=== PATIENT | female | born 1985 | race Caucasian/White ===

== ENCOUNTER 2017-03-07 06:04 | Day surgery (SDC) | payer OTHER ==
[2017-02-27 16:15] VITALS: BMI 40.0
[2017-03-07] MEDS ORDERED: ROPIVACAINE HCL 0.5% 30ML VIAL ONE (07:00)
[2017-03-07] MEDS ORDERED: MIDAZOLAM HCL 2 MG/2 ML SINGLE DOSE VIAL ONE ×2 (07:00→07:14)
[2017-03-07] MEDS ORDERED: DEXAMETHASONE SOD PHOSPHATE/PF 10 MG/ML SDV ONE (07:00)
[2017-03-07] MEDS ORDERED: BUPIVACAINE HCL/PF 0.5% (5MG/ML) 10 ML VIAL ONE (07:13)
[2017-03-07] MEDS ORDERED: SUCCINYLCHOLINE CHLORIDE 200 MG/10 ML VIAL ONE (07:14)
[2017-03-07] MEDS ORDERED: PROPOFOL 20 ML ONE ×2 (07:14→08:01)
[2017-03-07] MEDS ORDERED: VANCOMYCIN 1,000 MG VIAL (RESTRICTED TO ID ONLY) ONE (07:15)
[2017-03-07] MEDS ORDERED: ceFAZolin SODIUM 1 GM VIAL ONE ×2 (07:15→08:03)
[2017-03-07] MEDS ORDERED: BUPIVACAINE HCL/EPINEPHRINE/PF 30 ML VIAL IJ ONE (07:15)
[2017-03-07] MEDS ORDERED: TRANEXAMIC ACID 1000 MG/10 ML VIAL ONE ×2 (07:15→07:58)
--- NOTE | 2017-03-07 07:24 | HP ---
Admitting History and Physical - Admission History of Present Illness: The patient is a 31 yo female who presents for Left ACL repair today. She injured herslef in October of this year after having a fall. Currently she had no pain but experiences instability. History Source: Patient Limitations to Obtaining History: No Limitations - Past Medical History Cardiovascular: No: Deep Vein Thrombosis Pulmonary: No: Asthma Gastrointestinal: No: Gastritis, GERD Renal/: No: Hematuria, Renal Calculi, UTI ...LMP: 02/20/17 ...: No Heme/Onc: No: Bleeding Disorder - Past Surgical History Additional Past Surgical History: Right ACL repair from a skiing accident in 2006 - Smoking History Smoking history: Never smoked Have you smoked in the past 12 months: No - Alcohol/Substance Use Hx Alcohol Use: Yes (rare) Home Medications - Allergies Allergies/Adverse Reactions: Allergies Allergy/AdvReac Type Severity Reaction Status Date / Time No Known Allergies Allergy Verified 02/27/17 16:36 - Home Medications Home Medications: Ambulatory Orders NK [No Known Home Medication] 02/27/17 Review of Systems - Review of Systems Constitutional: reports: Chills. denies: Fever Neck: denies: Decreased ROM, Pain on Movement Cardiovascular: denies: Chest Pain, Palpitations Respiratory: reports: Snoring. denies: Cough, SOB Gastrointestinal: denies: Abdominal Pain, Nausea Genitourinary: denies: Burning, Dysuria Musculoskeletal: denies: Back Pain, Decreased ROM Neurological: denies: Dizziness, Headache Hematology/Lymphatic: denies: Easily Bruised, Excessive Bleeding Physical Examination Vital Signs: Vital Signs Temperature 97.8 F 03/07/17 06:38 Pulse Rate 75 03/07/17 06:38 Respiratory Rate 18 03/07/17 06:38 Blood Pressure 133/87 03/07/17 06:38 O2 Sat by Pulse Oximetry (%) 98 03/07/17 06:38 Constitutional: Yes: Well Nourished, Calm Eyes: Yes: WNL, Conjunctiva Clear. No: Sclera Icterus HENT: Yes: WNL, Atraumatic, Normocephalic Neck: Yes: WNL, Supple, Trachea Midline Cardiovascular: Yes: WNL, Regular Rate and Rhythm Respiratory: Yes: WNL, Regular, CTA Bilaterally Gastrointestinal: Yes: WNL, Normal Bowel Sounds, Soft Extremities: Yes: Other (positive Lachmans on the left, Right knee with healed scar on knee). No: Calf Tenderness, Delayed Capillary Refill Edema: No Peripheral Pulses WNL: Yes Peripheral Pulses: Left Doralis Pedis: 2+, Right Dorsalis Pedis: 2+ Neurological: Yes: WNL, Alert, Oriented ...Motor Strength: LUE, LLE, RUE, RLE Psychiatric: Yes: Alert, Oriented Labs: Laboratory Tests 03/07/17 06:14 Urine HCG, Qual Negative Problem List - Problems (1) Anterior cruciate ligament tear Assessment/Plan: Plan for surgery today/ Local block to be given by anesthesia The patient remains npo DVT ppx with SCD to right leg/ambulate IV avx at time of surgical incision Code(s): S83.519A - SPRAIN OF ANTERIOR CRUCIATE LIGAMENT OF UNSP KNEE, INIT Qualifiers: Laterality: left
[2017-03-07] MEDS ORDERED: BUPIVACAINE 0.25% /EPI 1:200,000 10 ML VIAL INF ONE ×2 (07:45)
[2017-03-07] MEDS ORDERED: KETAMINE HCL 200 MG/20 ML VIAL ONE (08:06)
--- NOTE | 2017-03-07 09:54 | OP ---
Operative Note - Note: Operative Date: 03/07/17 Pre-Operative Diagnosis: LEft knee ACL tears, medial condyle cartilage defect Operation: Left knee ACLR and medial condyle microfracture Post-Operative Diagnosis: Same as Pre-op Surgeon: Tyrel Yepez Lead Caster: Rita Paredes Anesthesiologist/PHARMACY INFORMATICS SPECIALIST: Loi Sanchez Anesthesia: General Operative Report Dictated: Yes
--- NOTE | 2017-03-07 09:54 | DS ---
Physical Examination Vital Signs: Vital Signs Temperature 97.8 F 03/07/17 06:38 Pulse Rate 75 03/07/17 06:38 Respiratory Rate 18 03/07/17 06:38 Blood Pressure 133/87 03/07/17 06:38 O2 Sat by Pulse Oximetry (%) 98 03/07/17 06:38 Discharge Summary Reason For Visit: ANTERIOR CRUCIATE LIGAMENT TEAR, LEFT KNEE Condition: Good - Instructions Diet, Activity, Other Instructions: Post Operative Instructions: ACL Reconstruction Dr. Tyrel Yepez 1. Pain following an ACL reconstruction is variable and can be significant. Some patients will have more pain than others. You have been provided with a prescription for medication that contains a narcotic. You are not allowed to drive while on this medication. Feel free to take medications such as Ibuprofen or Naprosyn in addition to the pain medicine if you do not have any problems with the NSAID class of medications. 2. You should not remove the bandages for 48 hours unless directed otherwise. You may shower at that point. You are not allowed to bathe or go swimming. Put band-aids on the sutures after your shower and do not put any creams or lotions over the incisions. 3. You are allowed to put all your weight on the leg and bend your knee, however , you should use crutches for assistance unless directed otherwise. 4. Getting the knee straight is your most important goal during the first 72 hours following an ACL reconstruction. Try not to lie down with a pillow under your knee. Instead the pillow should be under your ankle, thus allowing you to push your knee straight down into the bed. This is a very important milestone to achieve before your first post-surgery visit with me. 5. Swelling around the knee is normal following an ACL reconstruction. 6. The area around the knee and along the front of your thomas will also become swollen and black and blue. 7. Apply ice to the knee for 15 min every hour or so. You may continue this for as many days as you like. 8. Please call the office to schedule a visit to have your sutures removed. 9. If for any reason you believe you may have an infection or are concerned, please feel free to call me. I can be reached through our office number 24 hours a day. 10. Please call our office with any questions; we will review the surgical findings during your post operative visit. Disposition: HOME - Home Medications Comprehensive Discharge Medication List: Ambulatory Orders NK [No Known Home Medication] 02/27/17
[2017-03-07] MEDS ORDERED: ONDANSETRON 4 MG/2 ML VIAL IVPUSH ONE (10:05)
[2017-03-07] MEDS ORDERED: SCOPOLAMINE HYDROBROMIDE 1 PATCH PATCH.TD72 ONE (10:09)
[2017-03-07] MEDS ORDERED: ONDANSETRON 4 MG/2 ML VIAL ONE (10:10)
[2017-03-07] MEDS ORDERED: PROMETHAZINE HCL 25 MG/1 ML VIAL ONE (10:47)
[2017-03-07] MEDS ORDERED: PROMETHAZINE HCL 25 MG/1 ML VIAL IVPUSH ONE (10:50)
[2017-03-07] MEDS ORDERED: PROMETHAZINE HCL 25 MG/1 ML VIAL IVPUSH PRN (11:52)
[2017-03-07] MEDS ORDERED: oxyCODONE HCL 5 MG TABLET PO PRN ×2 (11:52)
[2017-03-07] MEDS ORDERED: ONDANSETRON 4 MG/2 ML VIAL IVPUSH PRN (11:52)
[2017-03-07] MEDS ORDERED: LACTATED RINGERS SOLUTION 1,000 ML IV SCH (12:00)
[2017-03-07 12:50] VITALS: TEMP 98.5
[2017-03-07 13:31] VITALS: BP 114/70; PULSE 74
--- NOTE | 2017-03-07 13:37 | SURG ---
Surgery Manager Biostatistics Note Manager Biostatistics: Rita Paredes PA-C Date of Service: 03/07/17 Diagnosis: LEft knee ACL tears, medial condyle cartilage defect Procedure: Left knee ACLR and medial condyle microfracture I was present for the entirety of the operative procedure. For further detail, please refer to operative report. Visit type - Case Type Case Type: Scheduled Admission - Emergency Emergency Visit: No - New patient This patient is new to me today: Yes Date on this admission: 03/07/17 - Critical Care Critical Care patient: No
--- NOTE | 2017-03-10 12:36 | PATH ---
Surgical Pathology Report Patient Name: ALONDRA GROSS [facility]. Rec. #: [id number] /Age/Gender: 1985 (Age: 31) / F Account: [id number] Location: [facility] AMBULATORY Taken: 03/07/2017 Received: 03/07/2017 Reported: 03/10/2017 Physicians: Tyrel Yepez M.D. Specimen(s) Received LEFT KNEE SHAVINGS Clinical History Left knee ACL tear Final Diagnosis KNEE, LEFT, ARTHROSCOPIC SHAVING: FIBROCARTILAGE WITH MYXOID DEGENERATIVE CHANGES, ALONG WITH PORTIONS OF BONE, SYNOVIUM AND HYALINE CARTILAGE. Electronically Signed Doug Olmos M.D. Gross Description Received in formalin labeled "left knee shavings," is a 2.0 x 1.5 x 0.3 cm aggregate of jones-yellow soft tissue fragments. The formalin is filtered and the specimen is entirely submitted in one cassette. 03/07/201703/07/2017
== END 2017-03-07 13:59 | disposition home or self-care (01) ==
LOC: FASU 06:04
PROVIDERS: ATTEND Orthopaedic Surgery
PROC: 0SQD4ZZ Repair Left Knee Joint, Percutaneous Endoscopic Approach (ICD-10-PCS; 2017-03-07)
PROC: 0MUP47Z Supplement Left Knee Bursa and Ligament with Autologous Tissue Substitute, Percutaneous Endoscopic Approach (ICD-10-PCS; principal; 2017-03-07 07:45)
DX: S83.512A Sprain of anterior cruciate ligament of left knee, initial encounter (principal); M24.10 Other articular cartilage disorders, unspecified site; X58.XXXA Exposure to other specified factors, initial encounter; Y93.9 Activity, unspecified; Y92.9 Unspecified place or not applicable
CPT/HCPCS: 84703; 88304-TC; 94760; 97116-GP